=== PATIENT | female | born 1975 | race Caucasian/White ===

== ENCOUNTER 2023-12-21 08:50 | Emergency (ER) | payer MEDICAID ==
[~2023-12-21] VITALS: Ht 162.6 cm; Wt 81.9 kg
[2023-12-21 09:18] VITALS: BP 156/97; PULSE 89; RESP 18; TEMP 98.7; O2SAT 98
[2023-12-21] MEDS ORDERED: IBUP1TAB5 PO (09:59)
== END 2023-12-21 09:42 | disposition home or self-care (01) ==
LOC: ER 08:50
DX: S76.911A Strain of unspecified muscles, fascia and tendons at thigh level, right thigh, initial encounter (principal); S76.011A Strain of muscle, fascia and tendon of right hip, initial encounter; E78.5 Hyperlipidemia, unspecified; Z88.1 Allergy status to other antibiotic agents; X58.XXXA Exposure to other specified factors, initial encounter; Y93.89 Activity, other specified; Y92.89 Other specified places as the place of occurrence of the external cause; Y99.8 Other external cause status